=== PATIENT | male | born 1955 | race Caucasian/White ===

== ENCOUNTER → 2018-04-09 | Outpatient (CLI) | payer OTHER, BC | LOC: FIMAGING 12:07 | PROVIDERS: ATTEND Orthopaedic Surgery | DX: M17.11 Unilateral primary osteoarthritis, right knee (principal); M23.41 Loose body in knee, right knee; R93.3 Abnormal findings on diagnostic imaging of other parts of digestive tract ==

== ENCOUNTER 2018-04-30 06:46 | Observation (INO) | payer OTHER, BC ==
[~2018-04-30 06:46] MED LIST: ROPIVACAINE 0.2% 80 MG, EPINEPHrine 0.2 MG, KETOROLAC TROMETHAMINE 30 MG in SYRINGE 0 ML IU ONE; TRANEXAMIC ACID 3,000 MG in NS (SYRINGE) 50 ML IRR ONE
[2018-04-30] MEDS ORDERED: TRANEXAMIC ACID 3,000 MG/50 ML BAG IRR ONE (06:58)
[2018-04-30] MEDS ORDERED: VANCOMYCIN 1 GM VIAL ONE (06:58)
--- NOTE | 2018-04-30 07:12 | PDHPUP ---
History & Physical Update H&P update statement: This history and physical update is based on an assessment of the patient which was completed after admission or registration (within 24 hours), but prior to the surgery/procedure. H&P update: H&P reviewed & patient examined, no change in patient's condition since H&P completed
[2018-04-30] MEDS ORDERED: ACETAMINOPHEN 325 MG TAB PO ONE (07:22)
[2018-04-30] MEDS ORDERED: ceFAZolin 2 GM/DEXTROSE 100 ML IV ONE (07:22)
[2018-04-30] MEDS ORDERED: FAMOTIDINE 20 MG TAB PO ONE (07:22)
[2018-04-30] MEDS ORDERED: LR 1,000 ML IV ONE (07:24)
[2018-04-30] MEDS ORDERED: MIDAZOLAM 2 MG/2 ML VIAL ONE (08:58)
[2018-04-30] MEDS ORDERED: MIDAZOLAM 2 MG/2 ML VIAL IVP ONE (08:59)
--- NOTE | 2018-04-30 08:59 | PDANEPAE ---
ANE History of Present Illness knee ANE Past Medical History - Cardiovascular History Hx Hypertension: Yes Hx Arrhythmias: No Hx Chest Pain: No Hx Coronary Artery / Peripheral Vascular Disease: No Hx CHF / Valvular Disease: No Hx Palpitations: No Cardiovascular History Comment: hx of DVT after knee surgery, 2012 - Pulmonary History Hx COPD: No Hx Asthma/Reactive Airway Disease: Yes Hx Recent Upper Respiratory Infection: No Hx Oxygen in Use at Home: No Hx Sleep Apnea: No Sleep Apnea Screening Result - Last Documented: Positive Pulmonary History Comment: ANJANA trigger only - Neurologic History Hx Cerebrovascular Accident: No Hx Seizures: No Hx Dementia: No - Endocrine History Hx Diabetes: Yes Hypothyroid: No Hyperthyroid: No Obesity: mild Endocrine History Comment: DM 2 - Renal History Hx Renal Disorders: No - Liver History Hx Hepatic Disorders: No - Neurological & Psychiatric Hx Hx Neurological and Psychiatric Disorders: No - Cancer History Hx Cancer: No - Congenital Disorder History Hx Congenital Disorders: No - GI History GERD: no Hx Gastrointestinal Disorders: No - Other Health History Other Health History: wears reading glasses - Chronic Pain History Chronic Pain: Yes (right knee) - Surgical History Prior Surgeries: right shoulder rotator cuff. left knee replacement ANE Review of Systems Review of Systems: - Exercise capacity Exercise capacity: >=4 METS METS (RN): 4 METS ANE Patient History - Allergies Allergies/Adverse Reactions: No Known Allergies Allergy (Verified 04/05/18 10:52) - Home Medications Home medications: home medication list seen and reviewed Home Medications: Atorvastatin Calcium 04/05/18 [Last Taken 04/27/18] Humalog 04/05/18 [Last Taken 04/29/18 20:00] Lisinopril 04/05/18 [Last Taken 04/29/18 20:00] Tresiba Flextouch U-100 04/05/18 [Last Taken 04/29/18 17:00] Trulicity 04/05/18 [Last Taken 04/25/18] - NPO status NPO Status: no food or drink >8 hours NPO Since - Liquids (Date): 04/29/18 NPO Since - Liquids (Time): 22:00 NPO Since - Solids (Date): 04/29/18 NPO Since - Solids (Time): 20:00 - Anes Hx Anes Hx: no prior problems - Smoking Hx Smoking Status: Never smoked - Family Anes Hx Family Hx Anesthesia Complications: none ANE Labs/Vital Signs - Vital Signs Blood Pressure: 132/82 Heart Rate: 67 Respiratory Rate: 16 O2 Sat (%): 95 Height: 172.72 cm Weight: 102.058 kg ANE Physical Exam - Airway Mallampati Score: Class 2 Mouth exam: normal dental/mouth exam - Pulmonary Pulmonary: no respiratory distress - Cardiovascular Cardiovascular: regular rate and rhythym - ASA Status ASA Status: II ANE Anesthesia Plan Anesthesia Plan: spinal Regional Anesthesia: adductor canal FNB
[2018-04-30] MEDS ORDERED: LIDOCAINE 2% 5 ML SDV ONE (09:02)
[2018-04-30] MEDS ORDERED: BUPIVACAINE/DEXTROSE 7.5MG/ML 2 ML SPINAL AMP SP ONE (09:02)
[2018-04-30] MEDS ORDERED: PROPOFOL/EMULSION 500 MG/50 ML BOTTLE IV ONE (09:02)
[2018-04-30] MEDS ORDERED: ROPIVACAINE HCL 150 MG/30 ML INJ ONE (09:02)
[2018-04-30] MEDS ORDERED: D50W 25 GM/50 ML SYR IVP PRN (09:50)
[2018-04-30] MEDS ORDERED: ONDANSETRON 4 MG/2 ML VIAL IVP PRN ×2 (09:51→10:02)
[2018-04-30] MEDS ORDERED: LACTULOSE 20 GM/30 ML UDCUP PO PRN (09:51)
[2018-04-30] MEDS ORDERED: BISACODYL 10 MG SUPP PR PRN (09:51)
[2018-04-30] MEDS ORDERED: MAGNESIUM HYDROXIDE 30 ML UDCUP PO PRN (09:51)
[2018-04-30] MEDS ORDERED: ONDANSETRON DISINTEGRATING 4 MG TAB PO PRN (09:51)
[2018-04-30] MEDS ORDERED: METOCLOPRAMIDE 10 MG/2 ML VIAL IVP PRN (09:51)
[2018-04-30] MEDS ORDERED: diphenhydrAMINE 25 MG CAP PO PRN (09:51)
[2018-04-30] MEDS ORDERED: TEMAZEPAM 15 MG CAP PO PRN (09:51)
[2018-04-30] MEDS ORDERED: PROMETHAZINE HCL 25 MG SUPPR PR PRN (09:51)
[2018-04-30] MEDS ORDERED: DIPHENOXYLATE/ATROPINE LOMOTIL 1 TAB PO PRN (09:51)
[2018-04-30] MEDS ORDERED: POLYETHYLENE GLYCOL 3350 17 GM PKT PO PRN (09:51)
[2018-04-30] MEDS ORDERED: PROMETHAZINE HCL 25 MG/ML INJ IVP PRN (09:51)
[2018-04-30] MEDS ORDERED: LR 1,000 ML IV SCH (10:00)
[2018-04-30] MEDS ORDERED: ALBUTEROL 3 ML DEYVIAL IH PRN (10:02)
[2018-04-30] MEDS ORDERED: LR 500 ML IV PRN (10:02)
[2018-04-30] MEDS ORDERED: fentaNYL 100 MCG/2 ML INJ IVP PRN (10:02)
[2018-04-30] MEDS ORDERED: NALOXONE HCL 0.4 MG/ML INJ IVP PRN (10:02)
[2018-04-30] MEDS ORDERED: HYDROmorphONE/DILAUDID 2 MG/ML INJ IVP PRN (10:02)
[2018-04-30] MEDS ORDERED: PROPOFOL 200 MG/20 ML VIAL ONE (10:06)
--- NOTE | 2018-04-30 10:29 | POSTOPPROG ---
Post Op Note Date of Operation: 04/30/18 Surgeon: Lilian Storm Chief Nurse Anesthetist: ej storm PA-C Anesthesiologist: Dr. Collado Anesthesia: Spinal, Other (Specify) (adductor canal block) Pre-op Diagnosis: right knee OA Post-op Diagnosis: same Indication: right knee pain Procedure: R med PKA robot assisted Findings: severe medial knee OA Inf/Abcess present in the surg proc area at time of surgery?: No EBL: 50-100
--- NOTE | 2018-04-30 10:44 | POSTANESTH ---
Post Anesthetic Evaluation Cardiovascular Status: Normal, Stable Respiratory Status: Normal, Stable Level of Consciousness/Mental Status: Moderately Sleepy Pain Control: Adequate, Prn Tx Ordered Nausea/Vomiting Control: Adequate, Prn Tx Ordered Complications Possibly Related to Anesthesia: None Noted
[2018-04-30] MEDS: ACETAMINOPHEN 325 MG TAB PO SCH ×2 (12:54→17:46)
[2018-04-30] MEDS: INSULIN REGULAR HUMAN 100 UNIT/ML UNIT SC SCH ×3 (12:54→21:41)
[2018-04-30] MEDS ORDERED: WARFARIN SODIUM 5 MG TAB PO SCH (16:00)
[2018-04-30] MEDS: oxyCODONE IR 5 MG TAB PO PRN (16:17)
[2018-04-30] MEDS: CYCLOBENZAPRINE 10 MG TAB PO PRN (16:18)
[2018-04-30] MEDS: ceFAZolin 2 GM/DEXTROSE 100 ML IV SCH (16:37)
[2018-04-30] MEDS: FAMOTIDINE 20 MG TAB PO SCH (21:36)
[2018-04-30] MEDS: SENNOSIDES/DOCUSATE SODIUM TAB PO SCH (21:36)
[2018-05-01] MEDS: ceFAZolin 2 GM/DEXTROSE 100 ML IV SCH (00:28)
[2018-05-01] MEDS: CYCLOBENZAPRINE 10 MG TAB PO PRN ×2 (00:29→08:31)
[2018-05-01] MEDS: ACETAMINOPHEN 325 MG TAB PO SCH ×3 (00:29→13:20)
[2018-05-01 05:22] LABS: INR 1.11 (0.83-1.16); PROTIME(PATIENT) 14.5 SEC (12.0-15.0)
[2018-05-01] MEDS: oxyCODONE IR 5 MG TAB PO PRN ×2 (08:30→13:21)
[2018-05-01] MEDS: SENNOSIDES/DOCUSATE SODIUM TAB PO SCH (08:31)
[2018-05-01] MEDS: FAMOTIDINE 20 MG TAB PO SCH (08:31)
[2018-05-01] MEDS: INSULIN REGULAR HUMAN 100 UNIT/ML UNIT SC SCH ×2 (08:38→14:06)
[2018-05-01] MEDS ORDERED: ENOXAPARIN 40 MG/0.4 ML SYR SC SCH (09:00)
[2018-05-01] MEDS ORDERED: ALBUTEROL 60 PUFFS/8 GM MDI IH PRN (09:00)
[2018-05-01] MEDS ORDERED: ATORVASTATIN CALCIUM 20 MG TAB PO SCH (09:00)
[2018-05-01] MEDS ORDERED: LISINOPRIL 2.5 MG TAB PO SCH (09:00)
--- NOTE | 2018-05-01 10:51 | SOAPPROG ---
SOAP Progress Note Assessment/Plan: Assessment: Patient is doing well POD 1 s/p R medial PKA Pain management: pain is well controlled on oral pain meds. VTE ppx: recommend coumadin and lovenox, cont VICKI and SCDs Anemia: level is expected initially postop. Asymptomatic. Continue to monitor D/c planning:patient has done much better than anticipated. Patient is stable, BP stable, pain well controlled and patient is eager for discharge to home. May d/c to home today pending release from PT postop urinary retention: straight cath'd yesterday, resolved today. Plan: 05/01/18 10:49 Subjective: Roxane is doing well, denies SOB, chest pain and N/V Objective: Vital Signs Temp Pulse Resp BP Pulse Ox 36.4 C 60 16 123/69 H 94 05/01/18 07:39 05/01/18 07:39 05/01/18 07:39 05/01/18 10:30 05/01/18 07:39 Laboratory Results 05/01/18 04:45 04/30/18 05/01/18 05/02/18 05:59 05:59 05:59 Intake Total 1700 Output Total 800 375 Balance 900 -375 PT 14.5 SEC (12.0-15.0) 05/01/18 04:45 INR 1.11 (0.83-1.16) 05/01/18 04:45 RLE: incision dressing is clean and dry, NVI,+pf/df ICD10 Worksheet Patient Problems: Problems Problem Status Onset Primary localized osteoarthritis of right knee Acute
--- NOTE | 2018-05-01 11:33 | GDS ---
ADMISSION DIAGNOSIS: Right knee osteoarthritis. DISCHARGE DIAGNOSIS: Right knee osteoarthritis. PROCEDURE: Right partial knee arthroplasty medial compartment robotic-assisted. VTE PROPHYLAXIS: Recommend Coumadin, Lovenox due to history of DVT 3 months postop his other knee. BRIEF DESCRIPTION OF HOSPITAL STAY: Patient was admitted for an elective joint arthroplasty. The pa tient tolerated the procedure well and has passed physical therapy. The patient was given appropriat e antibiotic prophylaxis and venous thromboembolism prophylaxis. The patient's pain was well control led on oral pain medication, patient was holding down food, and had urinated. Decision was made to d ischarge the patient. The patient was given post-operative prescriptions pre-operatively. PLAN: To follow up with Dr. Gonzalez at [facility] in May 20. /[id number]/MODL
[2018-05-01 12:42] VITALS: BP 121/70
--- NOTE | 2018-05-01 19:36 | GOP ---
DATE OF OPERATION: 04/30/2018 SURGEON: Lars Gonzalez MD LINING STITCHER: SELENA Torres. ANESTHESIA: Spinal. PREOPERATIVE DIAGNOSIS: Right knee osteoarthritis. POSTOPERATIVE DIAGNOSIS: Right knee osteoarthritis. PROCEDURE PERFORMED: Right knee medial partial knee replacement with computer navigation and robotic assist. FINDINGS: ESTIMATED BLOOD LOSS: 50 cc. INDICATIONS: This is a 63-year-old male with progressive pain of the right knee unresponsive to conservative care. Risks and benefits of surgical intervention were explained in detail. DESCRIPTION OF PROCEDURE: The patient was brought to the operating room and placed on the table in supine position. Spinal anesthesia was induced without difficulty. A pneumatic tourniquet was applied about the right proximal thigh and the leg was prepped and draped in sterile fashion. Attention was turned first to the distal aspect of the right femur. At 3 cm proximal to the lateral rise of the femur, 2 percutaneous half pins were placed for fixation of the femoral array. In a similar fashion, 2 pins were placed anterolateral on the tibia for fixation of the tibial array. External land marking and registration of the hip center was performed without difficulty. After exsanguination by elevation, the tourniquet was inflated to mmHg. Incision was made from the tibial tuberosity to the superior pole of the patella. Dissection was carried out through the subcutaneous tissue to the deep fascia using Bovie electrocautery for hemostasis. Medial parapatellar arthrotomy was carried out to the superior pole of the patella. The medial collateral ligament was elevated and the infrapatellar fat pad was resected. Internal femoral and tibial registration was carried out without difficulty and the femoral and tibial checkpoints were placed and verified for accuracy. Attention was turned to the femur. The foot print for the size 4 femoral component was cut with the 6 mm bur using the [employer] robotic system and verified for accuracy against the CT based plan. The hole was cut for the femoral post. In a similar fashion, the 6 mm bur was used to cut the foot print for the size 5 tibial component using the [employer] system and verified for accuracy against the CT based plan. Attention was turned to the posterior aspect of the knee and remnants of the medial meniscus were excised. The posterior capsule was injected with ropivacaine, epinephrine and Toradol. Trial reduction was carried out and there was excellent range of motion, alignment and stability using the size 4 femoral component and the size 5 tibial component. All trials were then removed. The joint was thoroughly irrigated and carefully dried. One package of cement and 1 gram of vancomycin were mixed in the vacuum mixer and placed on the fixation surfaces of all components. The components were implanted and all excess cement was thoroughly removed. Implant placement was verified against the CT view plan and found to be excellent. The tourniquet was deflated and all bleeders were coagulated. The wound was thoroughly irrigated and closed using interrupted sutures of 2-0 Vicryl for the joint capsule. The subcu was closed with 3-0 Vicryl and the skin with 4-0 Monocryl. Dermabond and Steri-Strips were applied, followed by a compressive dressing. The patient was then moved from the operating room to the recovery room in good condition, having tolerated the procedure well. CASE CLASSIFICATION: Clean. /[id number]/MODL MTDD
[2018-05-01] MEDS ORDERED: Insulin Degludec [Tresiba Flextouch U-100] 16 UNIT SQ SCH (21:00)
[2018-05-03] MEDS ORDERED: Dulaglutide [Trulicity] 1.5 MG SQ SCH (08:47)
== END 2018-05-01 13:29 | disposition home or self-care (01) ==
LOC: F3N 06:46 → EDSTATUS 12:00 → F3N 12:58
PROVIDERS: ADMIT Orthopaedic Surgery; ATTEND Orthopaedic Surgery
DX: M17.11 Unilateral primary osteoarthritis, right knee (principal); D62 Acute posthemorrhagic anemia; R33.9 Retention of urine, unspecified; E11.9 Type 2 diabetes mellitus without complications; Z86.718 Personal history of other venous thrombosis and embolism; Z96.652 Presence of left artificial knee joint
CPT/HCPCS: 27447; 73560; 97110; 97116; 97161; C1713; C1776; G0378; G8978; G8979; G8980; J0171; J0690; J1650; J1815; J1885; J2250; J2704; J2795; J3370